=== PATIENT | male | born 1975 | race African-American/Black ===

== ENCOUNTER 2017-10-09 22:02 | Emergency (ER) | payer MEDICARE ==
[2017-10-09 22:52] LABS: #Basophils 0.2 thou/uL (0.0-0.2); #Eosinphils 0.1 thou/uL (0.0-0.7); #Lymphocytes 3.6 thou/uL (1.20-3.40); #Monocytes 0.5 thou/uL (0.11-0.59); #Neutrophils 3.4 thou/uL (1.40-6.50); %Basophils 1.9 % (0.0-1.0); %Eosinophils 1.7 % (0.0-10.0); %Lymphocytes 45.5 % (21.0-51.0); %Monocytes 6.9 % (0.0-10.0); %Neutrophils 43.9 % (42.0-75.0); Hemoglobin 16.1 g/dL (14.0-18.0); Mean Corpuscular HGB CONC 34.5 g/dL (32.0-36.0); Mean Corpuscular Hemoglobin 29.9 pg (27.0-31.0); Mean Corpuscular Volume 86.7 fl (80.0-94.0); Mean Platelet Volume 7.2 fL (7.4-10.4); Platelet Count 267 thou/uL (130-400); RBC Distribution Width 11.6 % (11.5-14.5); Red Blood Cell (RBC) Count 5.38 mill/uL (4.70-6.10); White Blood Cell (WBC) Count 7.8 thou/uL (4.8-10.8)
[2017-10-09 23:03] LABS: CKMB 1.7 ng/mL (0-6.6); Troponin I Less than 0.010 ng/mL (< 0.028)
--- NOTE | 2017-10-09 23:21 | RAD ---
RADIOGRAPH CHEST 1 VIEW: 10/09/17 HISTORY: 41-year-old male with acute chest pain. FINDINGS: There are no air space densities, pulmonary edema, pneumothorax, or cardiomegaly. The lateral costop hrenic angles are sharp. IMPRESSION: No acute cardiopulmonary findings. kat [] POS: [facility]
[2017-10-09 23:53] LABS: ALT (SGPT) 29 U/L (8-55); AST (SGOT) 25 U/L (5-34); Albumin 4.5 g/dL (3.5-5.0); Alkaline Phosphatase 55 U/L (40-150); Anion Gap 17 mmol/L (10-20); BUN (Urea Nitrogen) 14 mg/dL (8.9-20.6); Bilirubin, Total 0.8 mg/dL (0.2-1.2); Calc. Creatinine Clearance 0 mL/min (70-130); Calcium 9.9 mg/dL (7.8-10.44); Carbon Dioxide 23 mmol/L (22-29); Chloride 102 mmol/L (98-107); Estimated GFR-MDRD 63; Globulin 3.4 g/dL (2.4-3.5); Glucose 205 mg/dL (70-105); Potassium 3.7 mmol/L (3.5-5.1); Protein, Total 7.9 g/dL (6.0-8.3); Sodium 138 mmol/L (136-145)
[2017-10-10 00:38] LABS: CKMB 1.5 ng/mL (0-6.6); Troponin I Less than 0.010 ng/mL (< 0.028)
--- NOTE | 2017-10-23 15:45 | EKG ---
Test Reason : Blood Pressure : / mmHG Vent. Rate : 083 BPM Atrial Rate : 083 BPM P-R Int : 170 ms QRS Dur : 076 ms QT Int : 368 ms P-R-T Axes : 047 008 -27 degrees QTc Int : 432 ms Normal sinus rhythm Abnormal ECG Confirmed by HERBIE GRIFFITH D.O. ([id number]), manager editorial STACEY CEVALLOS ([id number]) on 10/23/2017 3:43:48 PM Referred By: Confirmed By:HERBIE GRIFFITH D.O.
--- NOTE | 2017-10-23 15:45 | EKG ---
Test Reason : Blood Pressure : / mmHG Vent. Rate : 076 BPM Atrial Rate : 076 BPM P-R Int : 166 ms QRS Dur : 072 ms QT Int : 382 ms P-R-T Axes : 050 010 -32 degrees QTc Int : 429 ms Normal sinus rhythm with sinus arrhythmia Abnormal ECG Confirmed by HERBIE GRIFFITH D.O. ([id number]), editor department STACEY CEVALLOS ([id number]) on 10/23/2017 3:43:49 PM Referred By: MARIBELL GRIFFITH Confirmed By:HERBIE GRIFFITH D.O.
== END 2017-10-10 00:55 | disposition home or self-care (01) ==
LOC: SCSER 22:02
DX: R03.0 Elevated blood-pressure reading, without diagnosis of hypertension (principal); R42 Dizziness and giddiness; R79.89 Other specified abnormal findings of blood chemistry; F41.9 Anxiety disorder, unspecified; F32.9 Major depressive disorder, single episode, unspecified
CPT/HCPCS: 71045; 80053; 82553; 83690; 83880; 84484; 85025; 85379; 93005

== ENCOUNTER 2017-10-23 19:01 | Emergency (ER) | payer MEDICARE ==
[2017-10-23 19:31] LABS: #Basophils 0.1 thou/uL (0.0-0.2); #Eosinphils 0.1 thou/uL (0.0-0.7); #Lymphocytes 4.2 thou/uL (1.20-3.40); #Monocytes 0.6 thou/uL (0.11-0.59); #Neutrophils 3.9 thou/uL (1.40-6.50); %Basophils 1.4 % (0.0-1.0); %Eosinophils 1.5 % (0.0-10.0); %Lymphocytes 46.9 % (21.0-51.0); %Monocytes 6.8 % (0.0-10.0); %Neutrophils 43.5 % (42.0-75.0); Hemoglobin 16.1 g/dL (14.0-18.0); Mean Corpuscular HGB CONC 34.4 g/dL (32.0-36.0); Mean Corpuscular Hemoglobin 29.7 pg (27.0-31.0); Mean Corpuscular Volume 86.3 fl (80.0-94.0); Mean Platelet Volume 7.8 fL (7.4-10.4); Platelet Count 284 thou/uL (130-400); RBC Distribution Width 11.4 % (11.5-14.5); Red Blood Cell (RBC) Count 5.44 mill/uL (4.70-6.10)
[2017-10-23 19:47] LABS: ALT (SGPT) 18 U/L (8-55); AST (SGOT) 18 U/L (5-34); Albumin 4.6 g/dL (3.5-5.0); Alkaline Phosphatase 59 U/L (40-150); Anion Gap 14 mmol/L (10-20); BUN (Urea Nitrogen) 12 mg/dL (8.9-20.6); Bilirubin, Total 0.6 mg/dL (0.2-1.2); Calc. Creatinine Clearance 0 mL/min (70-130); Carbon Dioxide 26 mmol/L (22-29); Chloride 103 mmol/L (98-107); Estimated GFR-MDRD 57; Globulin 3.3 g/dL (2.4-3.5); Glucose 118 mg/dL (70-105); Lipase 34 U/L (8-78); Potassium 3.9 mmol/L (3.5-5.1); Protein, Total 7.9 g/dL (6.0-8.3)
[2017-10-23 19:48] LABS: CKMB 1.4 ng/mL (0-6.6); Troponin I Less than 0.010 ng/mL (< 0.028)
[2017-10-23] MEDS ORDERED: Nitroglycerin 2% Ointment 1 INCH/1 GM Packet ONE (19:49)
[2017-10-23 19:51] LABS: Sodium 139 mmol/L (136-145)
--- NOTE | 2017-10-23 20:06 | RAD ---
PA CHEST: 10/23/17 HISTORY: Chest pain. COMPARISON: 10/09/17. Lungs are clear. No infiltrate. Heart and mediastinum unremarkable. IMPRESSION: No acute process. No interval change. POS: [facility]
[2017-10-23 22:40] LABS: Troponin I Less than 0.010 ng/mL (< 0.028)
--- NOTE | 2017-11-28 13:16 | EKG ---
Test Reason : Blood Pressure : / mmHG Vent. Rate : 077 BPM Atrial Rate : 077 BPM P-R Int : 166 ms QRS Dur : 084 ms QT Int : 374 ms P-R-T Axes : 044 -04 -09 degrees QTc Int : 423 ms Normal sinus rhythm Normal ECG Confirmed by ERIK REYNOLDS MD ([id number]), graphics editor STACEY CEVALLOS ([id number]) on 11/28/2017 1:15:33 PM Referred By: GAIL Confirmed By:ERIK REYNOLDS MD
--- NOTE | 2017-11-28 13:29 | EKG ---
Test Reason : Blood Pressure : / mmHG Vent. Rate : 107 BPM Atrial Rate : 107 BPM P-R Int : 160 ms QRS Dur : 078 ms QT Int : 356 ms P-R-T Axes : 054 002 003 degrees QTc Int : 475 ms Sinus tachycardia Otherwise normal ECG Similar to 1ST Confirmed by ERIK REYNOLDS MD ([id number]), publishing editor STACEY CEVALLOS ([id number]) on 11/28/2017 1:28:49 PM Referred By: GAIL Confirmed By:ERIK REYNOLDS MD
== END 2017-10-23 23:10 | disposition home or self-care (01) ==
LOC: SCSER 19:01
DX: R07.89 Other chest pain (principal); E11.9 Type 2 diabetes mellitus without complications; F41.9 Anxiety disorder, unspecified; F32.9 Major depressive disorder, single episode, unspecified; Z79.84 Long term (current) use of oral hypoglycemic drugs
CPT/HCPCS: 36415; 71045; 80053; 82553; 83690; 84484; 85025; 93005; 94760

== ENCOUNTER 2017-12-11 13:19 | Outpatient (CLI) | payer MEDICARE ==
--- NOTE | 2017-12-11 14:33 | CT ---
NONCONTRAST AND POSTCONTRAST HEAD CT: COMPARISON: 08/15/16. HISTORY: Previous subdural hematoma. Headache. COMPARISON: None. TECHNIQUE: Pre- and post-contrast head CT is performed in the axial plane. FINDINGS: NONCONTRAST HEAD CT: No parenchymal hemorrhage. No extraaxial hematoma. No midline shift. Basilar cisterns are patent. Brain volume, age appropriate. Cortical bernardo-white matter differentiation is preserved. Ventricles and sulci are patent and symmetric. No evidence of hydrocephalus. Stable hypodensities in the anterior pole of the left middle cranial fossa compatible with an arachno id cyst. POSTCONTRAST IMAGES: No pathologic enhancement of the brain parenchyma. Calvarium is intact. Adequate aeration of the sinuses and mastoid air cells. Previous yola hole in the left calvarium is noted. IMPRESSION: 1. No acute intracranial process. 2. No pathologic enhancement of the brain parenchyma. POS: [facility]
--- NOTE | 2017-12-11 14:38 | CT ---
CT CERVICAL SPINE WITHOUT CONTRAST: Date: 12/11/17 HISTORY: Headache. Neck pain. Subdural hematoma in 1991. COMPARISON: None. TECHNIQUE: CT cervical spine is performed without contrast. Reformatted images are submitted for interpretation. FINDINGS: Straightening of normal cervical lordosis. No prevertebral soft tissue swelling. No epidural hematoma . There appears to be at least mild to moderate central canal stenosis at C5-C6 and C6-C7 due to dege nerative change from disc osteophyte complexes. Varying degrees of foraminal stenosis on the basis of degenerative change. Evaluation is limited by technique. Cervical spine vertebral body height is maintained. There is no fracture. Upper mediastinum and lung apices are unremarkable. IMPRESSION: 1. No evidence of fracture. 2. Varying degrees of central canal stenosis and foraminal narrowing on the basis of degenerative ch fiorella. Better interrogation with MRI is recommended. POS: [facility]
== END 2017-12-11 13:20 | disposition home or self-care (01) ==
LOC: TBSIIMAG 13:19
PROVIDERS: ATTEND Psychiatry & Neurology Neurology
DX: M48.02 Spinal stenosis, cervical region (principal); M99.81 Other biomechanical lesions of cervical region
CPT/HCPCS: 70470; 72125

== ENCOUNTER → 2018-02-25 | Day surgery (SDC) | payer MEDICARE ==
[~2018-02-25] MED LIST: Oxymetazoline HCl 0.05% ( 15 ML ) ONE
--- NOTE | 2018-02-27 17:19 | OP ---
DATE OF PROCEDURE: 02/27/2018 PROCEDURE: High resolution esophageal motility study. PREOPERATIVE DIAGNOSES: Dysphagia and gastroesophageal reflux disease. PROCEDURE REPORT: The manometry probe was placed by Nohelia Sawyer RN. Ten wet swallows were evalua nicholas and recorded. All wet swallow showed peristaltic contractions. The contractions were of normal wave amplitude measuring up to 100-144 mmHg. There was appropriate relaxation of the lower esophagea l sphincter from baseline pressure of around 30 mmHg and relaxation down to 10 mmHg range; however, t his relaxation was somewhat discontinuous. There were no simultaneous contractions or failed swallow s or contractions with excessive wave amplitudes. IMPRESSION: Normal esophageal motility.
--- NOTE | 2018-02-27 17:34 | OP ---
DATE OF PROCEDURE: 02/25/2018 AMBULATORY PH MONITORING STUDY PREOPERATIVE DIAGNOSIS: The pH probe was placed by Nohelia Sawyer RN. PROCEDURE: The probe was left in place for 24 hours and a pH study was done with information was gabriela nloaded to the computer and reviewed. Mr. Patton did have multiple episodes of brief acid exposure in the distal channel throughout the day. These were short episodes lasting less than a couple of minut es overall. The percent acid exposure time total for the distal probe was 4% of the time around 56 m inutes. The proximal channel had fewer episodes, total of around 8-9 episodes. These again were les s than a minute and half in duration. Total time with acid exposure in the proximal probe was 19 minutes, which was 1.4% of the time. This calculates to a DeMeester score of 6.2 with the upper limit of normal at 14.7. While he does have m ultiple episodes of brief acid reflux, the acid appears to be cleared and the duration of acid exposu re is within normal limits. He did have 3 episodes of cough reported and one of these at least was a round the time of acid reflux in the distal probe. IMPRESSION: Overall normal 24-hour pH study given the duration of acid exposure. However, he does have multiple brief episodes throughout the day while upright with acid exposure at the distal probe and a few epis odes of the proximal probe. Given that he has had some laryngeal symptoms and improvement with sanjay n pump inhibitor, it would be appropriate to continue the acid suppression given these findings. The re is no severe reflux episodes lasting long duration. RECOMMENDATIONS: 1. Continue proton pump inhibitor. 2. Follow up in GI clinic.
== END ==
LOC: SDC 08:03
PROVIDERS: ATTEND Internal Medicine Gastroenterology
DX: K21.9 Gastro-esophageal reflux disease without esophagitis (principal); J38.5 Laryngeal spasm; Z88.0 Allergy status to penicillin; Z88.8 Allergy status to other drugs, medicaments and biological substances; Z79.899 Other long term (current) drug therapy
CPT/HCPCS: 91010; 91034

== ENCOUNTER 2018-03-04 21:30 | Emergency (ER) | payer MEDICARE ==
[2018-03-04 22:17] LABS: ALT (SGPT) 20 U/L (8-55); AST (SGOT) 18 U/L (5-34); Albumin 4.3 g/dL (3.5-5.0); Alkaline Phosphatase 52 U/L (40-150); Anion Gap 16 mmol/L (10-20); BUN (Urea Nitrogen) 15 mg/dL (8.9-20.6); Bilirubin, Total 0.5 mg/dL (0.2-1.2); Calc. Creatinine Clearance 0 mL/min (70-130); Calcium 9.8 mg/dL (7.8-10.44); Carbon Dioxide 24 mmol/L (22-29); Chloride 102 mmol/L (98-107); Estimated GFR-MDRD 55; Globulin 3.2 g/dL (2.4-3.5); Glucose 119 mg/dL (70-105); Lipase 44 U/L (8-78); Protein, Total 7.5 g/dL (6.0-8.3); Sodium 138 mmol/L (136-145)
[2018-03-04 22:20] LABS: #Basophils 0.1 thou/uL (0.0-0.2); #Eosinphils 0.1 thou/uL (0.0-0.7); #Lymphocytes 3.5 thou/uL (1.20-3.40); #Monocytes 0.3 thou/uL (0.11-0.59); #Neutrophils 3.3 thou/uL (1.40-6.50); %Basophils 1.7 % (0.0-1.0); %Eosinophils 1.9 % (0.0-10.0); %Lymphocytes 47.3 % (21.0-51.0); %Monocytes 4.5 % (0.0-10.0); %Neutrophils 44.6 % (42.0-75.0); Hemoglobin 15.1 g/dL (14.0-18.0); Mean Corpuscular Hemoglobin 29.7 pg (27.0-31.0); Mean Corpuscular Volume 84.7 fL (78.0-98.0); Mean Platelet Volume 7.2 fL (7.4-10.4); Platelet Count 248 thou/uL (130-400); RBC Distribution Width 10.8 % (11.5-14.5); Red Blood Cell (RBC) Count 5.08 mill/uL (4.70-6.10); White Blood Cell (WBC) Count 7.4 thou/uL (4.8-10.8)
== END 2018-03-04 22:30 | disposition home or self-care (01) ==
LOC: SCSER 21:30
DX: R19.7 Diarrhea, unspecified (principal); R10.13 Epigastric pain; I10 Essential (primary) hypertension; Z79.899 Other long term (current) drug therapy
CPT/HCPCS: 80053; 83690; 85025; 96360

== ENCOUNTER 2018-03-07 15:16 | Outpatient (CLI) | payer MEDICARE | END 2018-03-07 15:17 | disposition home or self-care (01) | LOC: CTENTCT 15:16 | PROVIDERS: ATTEND Otolaryngology Plastic Surgery within the Head & Neck | DX: J34.89 Other specified disorders of nose and nasal sinuses (principal) | CPT/HCPCS: 70486 ==

== ENCOUNTER 2018-06-26 17:57 | Emergency (ER) | payer MEDICARE ==
[2018-06-26 18:47] LABS: Anion Gap 14 mmol/L (10-20); BUN (Urea Nitrogen) 17 mg/dL (8.9-20.6); Calc. Creatinine Clearance 0 mL/min (70-130); Calcium 10.5 mg/dL (7.8-10.44); Carbon Dioxide 25 mmol/L (22-29); Chloride 104 mmol/L (98-107); Estimated GFR-MDRD 57; Glucose 129 mg/dL (70-105); Sodium 139 mmol/L (136-145)
== END 2018-06-26 19:08 | disposition home or self-care (01) ==
LOC: SCSER 17:57
DX: R11.0 Nausea (principal); R42 Dizziness and giddiness; T50.995A Adverse effect of other drugs, medicaments and biological substances, initial encounter; I10 Essential (primary) hypertension; E11.9 Type 2 diabetes mellitus without complications; Z79.899 Other long term (current) drug therapy
CPT/HCPCS: 36416; 80048; 99284; 36415-59

== ENCOUNTER 2018-09-25 20:31 | Emergency (ER) | payer MEDICARE ==
[2018-09-25] MEDS ORDERED: Ibuprofen 800 MG TAB ONE (20:54)
[2018-09-25 20:58] LABS: Bilirubin Negative (Negative); Blood, Urine Negative (Negative); Clarity Clear (Clear); Glucose, Urine (Dipstick) 100 mg/dL (Negative); Leukocyte Negative (Negative); Nitrite Negative (Negative); Protein, Urine (Dipstick) Negative (Neg-Trace); Urobilinogen 0.2 mg/dL (0.2-1.0)
== END 2018-09-25 21:11 | disposition home or self-care (01) ==
LOC: SCSER 20:31
DX: R51 Headache (principal); R30.0 Dysuria; K21.9 Gastro-esophageal reflux disease without esophagitis; E78.5 Hyperlipidemia, unspecified; I10 Essential (primary) hypertension; Z79.899 Other long term (current) drug therapy
CPT/HCPCS: 81003; 99284